=== PATIENT | female | born 1955 | race Two or more races ===

== ENCOUNTER 2023-05-28 23:37 | Emergency (ER) | payer OTHER ==
[~2023-05-28] VITALS: Ht 165.1 cm; Wt 68.0 kg
[2023-05-28] MEDS ORDERED: INDERAL LA80 MG (23:59)
[2023-05-29] MEDS ORDERED: FAMOTIDINE/PF 20 MG in 0.9 % SODIUM CHLORIDE 8 ML IV PUSH STA (01:29)
[2023-05-29 02:18] LABS: HEMATOCRIT 40.1 % (36.0-45.00); HEMOGLOBIN 13.9 g/dL (12.0-15.00); MEAN CORPUSCULAR HEMOGLOBIN 31.6 pg (27.00-32.0); MEAN CORPUSCULAR HGB CONC 34.7 g/dl (32.0-36.0); PLATELET COUNT 214 K/uL (150-450); RED CELL DISTRIBUTION WIDTH 13.6 % (11.5-14.5)
[2023-05-29 03:28] LABS: ALBUMIN 3.8 gm/dL (3.4-5.0); BILIRUBIN TOTAL 0.45 mg/dL (0.3-1.2); CALCIUM 9.1 mg/dL (8.5-10.1); CREATININE SERUM 0.67 mg/dL (0.55-1.02); GFR 87.01; POTASSIUM 4.5 mEq/L (3.5-5.1); TOTAL PROTEIN 7.8 gm/dL (6.4-8.2)
[2023-05-29] MEDS ORDERED: PEPCID AC20 MG PO (04:22)
== END 2023-05-29 04:32 | disposition home or self-care (01) ==
LOC: ER 23:37
PROVIDERS: General Practice
DX: K29.70 Gastritis, unspecified, without bleeding (principal)
CPT/HCPCS: 36415; 93005; 96365; 99282; J3490